=== PATIENT | female | born 1975 | race Caucasian/White ===

== ENCOUNTER 2018-03-16 06:32 | Day surgery (SDC) | payer OTHER ==
[2018-03-15 11:24] VITALS: BMI 20.8
[2018-03-16] MEDS ORDERED: BENZOIN TINCTURE SWABSTICK TP ONE (07:16)
[2018-03-16] MEDS ORDERED: BUPIVACAINE HCL/PF 0.5% (5MG/ML) 10 ML VIAL ONE (07:16)
[2018-03-16] MEDS ORDERED: DEXAMETHASONE SOD PHOSPHATE 4 MG/1 ML VIAL ONE (07:16)
[2018-03-16] MEDS ORDERED: LIDOCAINE HCL 1%, 10 MG/ML (20ML VIAL) ONE ×2 (07:16)
[2018-03-16] MEDS ORDERED: ceFAZolin SODIUM 1 GM VIAL IVPB ONE (08:20)
[2018-03-16] MEDS ORDERED: MIDAZOLAM HCL 2 MG/2 ML SINGLE DOSE VIAL ONE ×2 (08:20)
[2018-03-16] MEDS ORDERED: PROPOFOL 20 ML ONE ×3 (08:26)
[2018-03-16] MEDS ORDERED: BUPIVACAINE HCL/PF 0.5% (5MG/ML) 10 ML VIAL IJ ONE (08:47)
[2018-03-16] MEDS ORDERED: LIDOCAINE HCL 1%, 10 MG/ML (20ML VIAL) PNB ONE (08:47)
[2018-03-16 09:21] VITALS: TEMP 97.3
--- NOTE | 2018-03-16 09:37 | OP ---
DATE OF OPERATION: 03/16/2018 SURGEON: Denilson Hatfield MD ASSISTANTS: Vandana Rankin DPM; Shalini Ortiz, PGY3 PREOPERATIVE DIAGNOSIS: Painful left foot great toe. POSTOPERATIVE DIAGNOSIS: Painful left foot great toe status post bunion. PROCEDURE: Left foot great toe hardware removal. ANESTHESIA: Local with MAC. PATHOLOGY: Screw was sent to Pathology. ESTIMATED BLOOD LOSS: 1 mL. HEMOSTASIS: Left ankle tourniquet at 250 mmHg. MATERIALS USED: Nylon 3-0 suture and postoperative dressing, Betadine-soaked Adaptic, 4 x 4's, sterile gauze, Kingsley and Coban. INJECTABLES: A 1:1 mixture of 1% lidocaine plain and 0.5% Marcaine plain, 15 mL, used preoperatively and 1 mL of dexamethasone was injected postoperatively. DESCRIPTION: The patient was brought to the operating room and placed on the operating table in a supine position. A pneumatic ankle tourniquet was then placed on the patient's left ankle. Following IV sedation local anesthesia was obtained using a 1:1 mixture of 1% lidocaine plain and 0.5% Marcaine plain. Preoperatively 15 mL total was injected throughout the surgical site. The left foot was then scrubbed, prepped and draped in the usual aseptic manner. An Esmarch bandage was then utilized to exsanguinate the patient's left foot and the tourniquet was inflated. Attention was then directed to the dorsal aspect of the 1st metatarsal head of the left foot. Using fluoroscopy the position of the screw that was previously placed was confirmed. Using a No. 15 blade small steps incision was placed on the dorsal aspect of the screw site. Using a screwdriver which was inserted screw was removed and taken out from the surgical site. At this time the wound was irrigated with copious amounts of normal saline with bacitracin in it and the skin was closed using 3-0 nylon suture in a simple suture fashion. Dexamethasone 4 mg, 1 mL, was injected throughout the surgical site and the left ankle tourniquet was deflated and immediate hyperemia was noted to all digits of the left foot. The patient tolerated the procedure and anesthesia well and was transferred to the postanesthesia care unit with vital signs stable and vascular status intact to the left lower extremity. The patient will be discharged home and was already given the prescriptions and instructions which were discussed prior to the surgery. JOANNE Caba/[id number]
[2018-03-16 11:33] VITALS: BP 104/64; PULSE 85
--- NOTE | 2018-03-19 18:02 | PATH ---
Surgical Pathology Report Patient Name: MELISSA PARK [facility]. Rec. #: [id number] /Age/Gender: 1975 (Age: 42) / F Account: [id number] Location: [facility] SURGICAL Taken: 03/16/2018 Received: 03/16/2018 Reported: 03/19/2018 Physicians: Vandana Rankin DPM Specimen(s) Received REMOVED SCREW FROM LEFT FOOT Clinical History Complication of surgical hardware Final Diagnosis FOOT, LEFT, SCREW, HARDWARE, LEFT, REMOVAL: SURGICAL HARDWARE. MACROSCOPIC DIAGNOSIS. Electronically Signed Jie Seo M.D. Gross Description Received fresh labeled "removed hardware left," is a 1.5 cm in length maharaj metallic screw. No soft tissue is present. No sections are submitted, gross only. 03/16/201803/16/2018
== END 2018-03-16 11:30 | disposition home or self-care (01) ==
LOC: JASU-SURG 06:32
PROVIDERS: ATTEND Podiatrist
PROC: 0QPP04Z Removal of Internal Fixation Device from Left Metatarsal, Open Approach (ICD-10-PCS; principal; 2018-03-16 08:00)
DX: T84.84XA Pain due to internal orthopedic prosthetic devices, implants and grafts, initial encounter (principal)
CPT/HCPCS: 73630-TC-LT; 76000-TC-FY; 84703; 88300-TC